=== PATIENT | male | born 1970 | race Hispanic/Latino ===

== ENCOUNTER 2024-04-11 12:19 | Observation (INO) | payer BC, OTHER ==
[~2024-04-11] VITALS: Ht 182.9 cm; Wt 111.1 kg
[2024-04-11 13:19] LABS: BASOPHILS # (AUTO) 0.08 K/uL (0.00-0.20); BASOPHILS % (AUTO) 0.9 % (0.0-5.0); EOSINOPHILS # (AUTO) 0.47 K/uL (0.00-0.70); HEMATOCRIT 42.9 % (42-54); IMMATURE GRANULOCYTE ABSOLUTE 0.05 K/uL (0-1); LYMPHOCYTES # (AUTO) 2.7 K/uL (1.0-4.8); LYMPHOCYTES % (AUTO) 28.7 % (21.0-51.0); MEAN CORPUSCULAR HEMOGLOBIN 30.3 pg (27.0-33.0); MEAN CORPUSCULAR HGB CONC 33.6 g/dL (32.0-36.0); MEAN CORPUSCULAR VOLUME 90.1 fL (79-99); MONOCYTES # (AUTO) 0.6 K/uL (0.1-1.0); MONOCYTES % (AUTO) 6.1 % (3.0-13.0); NEUTROPHILS # (AUTO) 5.5 K/uL (1.8-7.7); NEUTROPHILS % (AUTO) 58.8 % (40.0-77.0); PLATELET COUNT (AUTO) 317 K/uL (130-400); RED BLOOD CELL COUNT(AUTO) 4.76 MIL/uL (4.50-6.20); RED CELL DISTRIBUTION WIDTH 13.7 % (11.0-15.5); WHITE BLOOD COUNT (AUTO) 9.4 K/uL (4.8-10.8)
[2024-04-11 13:29] LABS: CREATININE 1.1 mg/dL (0.5-1.3); POTASSIUM 4.1 mmol/L (3.5-5.1)
[2024-04-11 13:33] LABS: ALBUMIN 3.5 g/dL (3.5-5.0); BILIRUBIN,DIRECT 0.1 mg/dL (0.0-0.3); BILIRUBIN,TOTAL 0.4 mg/dL (0.2-1.0); TOTAL PROTEIN, SERUM 7.5 g/dL (6.0-8.3)
[2024-04-11 13:59] LABS: PARTIAL THROMBOPLASTIN TIME 27.6 SEC (26.3-35.5)
[2024-04-11 14:15] LABS: INR <= 0.93 (0.85-1.15); PROTHROMBIN TIME 10.1 SEC (9.6-11.6)
[2024-04-11] MEDS: ketOROlac 30MG VIAL (30MG/ML) IVP ONE (15:32)
[2024-04-11 15:35] LABS: APPEARANCE,URINE CLEAR (CLEAR); BILIRUBIN,URINE NEGATIVE (NEGATIVE); COLOR,URINE LIGHT-YELLOW (YELLOW); GLUCOSE, URINE (UA) 50 mg/dL (NEGATIVE); KETONES,URINE NEGATIVE (NEGATIVE); LEUKOCYTE ESTERASE ,URINE NEGATIVE Leu/uL (NEGATIVE); NITRATE,URINE NEGATIVE (NEGATIVE); OCCULT BLOOD,URINE NEGATIVE (NEGATIVE); PH,URINE 5.5 (5.0-8.0); PROTEIN,URINE NEGATIVE (NEGATIVE); UROBILINOGEN,URINE 0.2 mg/dL (0.2-1.0)
[2024-04-11 15:39] LABS: BACTERIA,URINE RARE /HPF (None Seen); MUCUS,URINE RARE LPF (None Seen); RBC,URINE 0-1 /HPF (0-1); WBC,URINE 0-1 /HPF (0-1)
[2024-04-11] MEDS: DEXTROSE 5 %-0.45 % NACL 1,000 ML IV SCH (17:25)
[2024-04-11] MEDS ORDERED: LISI10TA24 PO (21:19)
[2024-04-11] MEDS: cefTRIAXone 1G VIAL IVPB SCH (23:48)
[2024-04-12] VITALS: BP 143/91; PULSE 95; RESP 18; TEMP 98.2
[2024-04-12] MEDS: morPHINE 4 MG SYG IVP PRN (00:30)
[2024-04-12 04:09] VITALS: BP 125/85; PULSE 90; RESP 18; TEMP 98.6
[2024-04-12 06:08] LABS: BASOPHILS # (AUTO) 0.06 K/uL (0.00-0.20); BASOPHILS % (AUTO) 0.6 % (0.0-5.0); EOSINOPHILS # (AUTO) 0.53 K/uL (0.00-0.70); EOSINOPHILS % (AUTO) 5.6 % (0.0-8.0); HEMATOCRIT 40.1 % (42-54); IMMATURE GRANULOCYTE ABSOLUTE 0.05 K/uL (0-1); LYMPHOCYTES # (AUTO) 2.7 K/uL (1.0-4.8); MEAN CORPUSCULAR HEMOGLOBIN 29.5 pg (27.0-33.0); MEAN CORPUSCULAR HGB CONC 31.9 g/dL (32.0-36.0); MEAN CORPUSCULAR VOLUME 92.4 fL (79-99); MONOCYTES # (AUTO) 0.6 K/uL (0.1-1.0); MONOCYTES % (AUTO) 6.2 % (3.0-13.0); NEUTROPHILS # (AUTO) 5.5 K/uL (1.8-7.7); NEUTROPHILS % (AUTO) 58.1 % (40.0-77.0); PLATELET COUNT (AUTO) 303 K/uL (130-400); RED BLOOD CELL COUNT(AUTO) 4.34 MIL/uL (4.50-6.20); RED CELL DISTRIBUTION WIDTH 13.6 % (11.0-15.5); WHITE BLOOD COUNT (AUTO) 9.4 K/uL (4.8-10.8)
[2024-04-12 06:44] LABS: BILIRUBIN,TOTAL 0.2 mg/dL (0.2-1.0); POTASSIUM 4.1 mmol/L (3.5-5.1); TOTAL PROTEIN, SERUM 6.7 g/dL (6.0-8.3)
[2024-04-12 08:00] VITALS: BP 123/79; PULSE 78; RESP 18; TEMP 97.7
[2024-04-12 09:45] VITALS: O2SAT 95
[2024-04-12] MEDS: IpraTROPium/alBUTERol SULFATE 3 ML SOLUTION IH SCH (11:41)
[2024-04-12 11:50] VITALS: PULSE 80; RESP 18
[2024-04-12] MEDS ORDERED: LISINOPRIL 10 MG TABLET PO SCH (21:00)
== END 2024-04-12 13:10 | disposition home or self-care (01) ==
LOC: EDH 12:19 → INTOOBSV 15:40 → EDHIP 15:40 → 3DH 22:46
PROVIDERS: ADMIT Internal Medicine; ATTEND Internal Medicine
DX: K40.90 Unilateral inguinal hernia, without obstruction or gangrene, not specified as recurrent (principal); I10 Essential (primary) hypertension; L40.9 Psoriasis, unspecified; K59.00 Constipation, unspecified; R05.9 Cough, unspecified; G47.30 Sleep apnea, unspecified; Z79.899 Other long term (current) drug therapy
CPT/HCPCS: 96361 ×2; 96365; 99285; 80076; 80048; 83690; 85025 ×2; 85610; 85730; 83605; 81001; 36415 ×2; 74176; 96375 ×2; 93005 ×2; 84145; 80053; 94640; G0378 ×21; J0696; J1885; J2270; 94664

== ENCOUNTER 2024-09-17 14:28 | Emergency (ER) | payer BC ==
[~2024-09-17] VITALS: Ht 182.9 cm; Wt 106.6 kg
[~2024-09-17 14:28] MED LIST: LISI10TA24 PO
[2024-09-17 16:18] VITALS: BP 130/72; PULSE 68; RESP 20; TEMP 99.1; O2SAT 100
[2024-09-17] MEDS ORDERED: AMOX500C2 PO (16:21)
[2024-09-17] MEDS ORDERED: IBUP-2070 PO (16:21)
--- NOTE | 2024-09-17 16:22 | ERN ---
ED Note History of Present Illness Stated Complaint: DENTAL PAIN Chief Complaint: Dental Problem Time Seen by MD: 16:05 Time Seen by Midlevel: 16:10 Dictation: Mr. Sofia is a 53 year male with history of obesity, type 2 diabetes, hypertension, and sleep apnea who was transported via EMS to the emergency department this afternoon for evaluation of dental pain. He reports right-sided dental pain times several weeks. He states he took a couple of amoxicillin pills that he had but he has increased pain as well as low-grade fever prompting him to call 911. He denies having shortness of breath, chest pain, palpitations, abdominal pain, nausea, vomiting, diarrhea, dysuria, headache, or dizziness. He states that he has not seen a dentist because he does not have dental insurance. He is currently in waiting room eating sandwich and drinking juice. PCP: Dr. Jose Daniel Charles Allergies: Coded Allergies: No Known Drug Allergies (Unverified Allergy, Unknown, 04/11/24) Home Meds Reported Medications Lisinopril (Lisinopril) 10 Mg Tablet, 10 MG PO HS, TAB 04/11/24 Past Medical History Past Medical History: Diabetes-Type II, Hypertension, Other Additional Past Medical Hx: SLEEP APNEA Surgical History: None Surgical History Other: INGUINAL HERNIA PSYCH History: no pertinent psych hx Social History: Smokers RN Note Reviewed/Agreed w/PFSH: Yes Review of System Dictation REVIEW OF SYSTEMS: CONSTITUTIONAL: Patient denies chills, sweats and weight changes. Reports low- grade fever. EYES: Patient denies any visual symptoms. EARS, NOSE, AND THROAT: No difficulties with hearing. No symptoms of rhinitis or sore throat. Reports right-sided dental pain. CARDIOVASCULAR: Patient denies chest pains, palpitations, orthopnea and paroxysmal nocturnal dyspnea. RESPIRATORY: No dyspnea on exertion, no wheezing or cough. GI: No nausea, vomiting, diarrhea, constipation, abdominal pain, hematochezia or melena. : No urinary hesitancy or dribbling. No nocturia or urinary frequency. No abnormal urethral discharge. MUSCULOSKELETAL: No myalgias or arthralgias. NEUROLOGIC: No chronic headaches, no seizures. Patient denies numbness, tingling or weakness. PSYCHIATRIC: Patient denies problems with mood disturbance. No problems with anxiety. ENDOCRINE: No excessive urination or excessive thirst. DERMATOLOGIC: Patient denies any rashes or skin changes. Initial Vital Sign VS Vital Signs Date Time Temp Pulse Resp B/P (MAP) Pulse Ox O2 Delivery O2 Flow Rate FiO2 09/17/24 14:52 100.6 116 18 169/106 96 Room Air 0 09/17/24 15:12 21 Physical Exam Dictation Vital signs: Reviewed. Temp 100.6. Constitutional: No acute distress. Non-toxic appearing. Head/Face: Normocephalic, atraumatic. Eyes: Periorbital areas with no swelling, redness, or edema. Lids and lashes are normal. Conjunctival injection is absent. Sclera anicteric. Pupils equal, round, reactive to light. ENT: Pinnas intact and no signs of trauma or erythema. Ear canals clear and no discharge. TMs no erythema. No nasal discharge or bleeding noted. Oropharynx with no exudate, redness, swelling, masses, exudates, or evidence of obstruction. Uvula midline. Mucous membranes moist. Overall poor dentition. He has broken teeth with deep caries 19. And 20. Gum with abscess formation. Neck: Trachea midline, no masses palpated, and no cervical lymphadenopathy. No swelling. Supple, full range of motion. Chest/Axilla: No tenderness, no crepitus, no paradoxical movement, no retractions. Cardiovascular: Regular rate, regular rhythm, no murmur, no gallops. Symmetric pulses. No peripheral edema. BP now at 138/78 and heart rate 66. Respiratory: Respirations even and unlabored. Lung sounds clear; no wheezes, rales or rhonchi. Room air SpO2 98%. Gastrointestinal: Inspection is normal. No distention is appreciated. Bowel sounds are normal. No mass or organomegaly . There is no tenderness. No rebound. No rigidity. No voluntary or involuntary guarding. No Smart's sign. Neurological: Normal speech, gross motor function intact, gross sensory function intact. No focal weakness/Paresthesia. Musculoskeletal/Extremities: All extremities have full range of motion, no pain or tenderness on palpation. Symmetric pulses. Integumentary: Intact. Skin is normal color, warm and dry. Cap refill less than 3 seconds. ED Course ED Course Orders Procedure Category Date Status Time Amoxicillin 500mg Cap PHA 09/17/24 Transmitted (Amoxicillin 500mg 16:30 Ketorolac PHA 09/17/24 Transmitted Tromethamine 30mg/Ml 16:30 Vital Signs Date Time Temp Pulse Resp B/P (MAP) Pulse Ox O2 Delivery O2 Flow Rate FiO2 09/17/24 15:12 100.8 66 20 138/78 100 Room Air* 0 21 09/17/24 14:52 100.6 116 18 169/106 96 Room Air 0 Uneventful ED course. Initially tachycardic with heart rate 116 and elevated blood pressure reading of 169/106. Repeat heart rate 66 and blood pressure 138/78. Reports pain to right gums but is able to eat a sandwich. While in the emergency department he received initial dose of amoxicillin as well as IM dose Toradol. Patient will need to see a dentist as soon as possible. Findings were discussed with patient. Medical Decision Making MDM MDM: Differential diagnosis: Dental caries, dental abscess Rationale: Tests considered and ordered secondary to shared decision making include: Examination Previous outside records reviewed: Old ER visits. Risk of complication and/or morbidity or mortality of patient management: None Medications-Per medication reconciliation Need for hospitalization: Patient does not meet criteria for hospitalization. Need for emergency major/minor surgery: No There are no social concerns with this patient. Prescription drug management: Ibuprofen, Amoxicillin Prescriptions will include symptomatic care Patient's prior external medical records from other ER visits were reviewed by me as indicated. Prior testing and results from previous visits were reviewed. Prior tests were taken into account with medical decision making and resource utilization, independent historian/historians were used to obtain complete medical history. I independently interpreted the test that were performed, results were reviewed by me and considered findings on radiology if ordered. Medical management and examination interpretation discussions were had by me with other qualified healthcare professionals as indicated for the patient's care. DX & DISP Disposition: Discharge Departure Impression: Primary Impression: Dental caries Additional Impression: Dental abscess Condition: Stable Scripts Amoxicillin (Amoxicillin) 500 Mg Capsule 500 MG PO TID for 10 Days, #30 CAP 0 Refills Prov: CINTHIA VANG LAYOUT WORKER 09/17/24 Ibuprofen (Ibuprofen) 600 Mg Tablet 600 MG PO Q6H PRN for PAIN, #12 TAB Prov: CINTHIA VANG LAYOUT WORKER 09/17/24 Additional Instructions: Warm saltwater rinses 3-4 times daily. You will need to take amoxicillin 3 times a day for 10 days; take until it is gone. May take ibuprofen 600 mg every 8 hours as needed for discomfort. You will need to follow up with your dentist as soon as possible. Follow up with your PCP. Return to the emergency department for any worsening of symptoms or concerns. Referrals: JOSE DANIEL CHARLES MD (PCP) Time of Disposition: 16:20 CINTHIA VANG NP Sep 17, 2024 16:22
[2024-09-17] MEDS: AMOXICILLIN 500 MG CAPSULE PO ONE (16:40)
[2024-09-17] MEDS: ketOROlac 30MG VIAL (30MG/ML) IM ONE (16:41)
== END 2024-09-17 16:47 | disposition home or self-care (01) ==
LOC: EDH 14:28
DX: K02.9 Dental caries, unspecified (principal); K04.7 Periapical abscess without sinus; E11.9 Type 2 diabetes mellitus without complications; I10 Essential (primary) hypertension; F17.200 Nicotine dependence, unspecified, uncomplicated
CPT/HCPCS: 99284; 96372; J1885